=== PATIENT | male | born 1970 | race Caucasian/White ===

== ENCOUNTER 2017-12-06 16:27 | Emergency (ER) | payer OTHER ==
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
[2017-12-06] MEDS ORDERED: IOPAMIDOL (ISOVUE-300) 100 ML BTL ONE ×2 (17:08)
[2017-12-06] MEDS ORDERED: IBUPROFEN 600 MG TAB PO ONE ×2 (17:56→18:10)
[2017-12-06 19:18] VITALS: BP 121/85
== END 2017-12-06 19:18 | disposition home or self-care (01) ==
DX: S39.92XA Unspecified injury of lower back, initial encounter (principal); S89.91XA Unspecified injury of right lower leg, initial encounter; V49.49XA Driver injured in collision with other motor vehicles in traffic accident, initial encounter
CPT/HCPCS: 82435-PO; 82565-PO; 82947-PO; 84132-PO; 84295-PO; 84520-PO; 85014-PO; Q9967